=== PATIENT | male | born 1960 | race Caucasian/White ===

== ENCOUNTER → 2016-08-31 | Outpatient (CLI) | payer MEDICARE, OTHER ==
[~2016-08-31] MED LIST: ATEN25TA PO; CINA30TA PO; CIPR-250 PO; FLAG500T PO; FOLI1TAB4 PO; HEPARIN 1,000 UNITS/ML 10ML VIAL (FOR RADIOLOGY& DIALYSIS ONLY) As Ordered ONE; ISOVUE-300 61% 50ML VIAL (Q9967) As Ordered ONE; LACTCAP PO; LANT50TA PO; LORA1TAB12 PO; MIDAZOLAM INJ 2 MG/2 ML VIAL (J2250) As Ordered ONE; MINO2.5T PO; RENATAB5 PO; RENV2TAB PO; [UNRECOGNIZED DRUG - CODE] PO; fentaNYL 100 MCG/2 ML INJECTION (J3010) As Ordered ONE
--- NOTE | 2016-09-01 14:39 | RO ---
DATE OF PROCEDURE: 08/31/2016 PREPROCEDURE DIAGNOSES: Dysfunction left brachiocephalic arteriovenous fistula , left hand and forearm swelling. POSTPROCEDURE DIAGNOSES: Dysfunction left brachiocephalic arteriovenous fistula, left hand and forearm swelling. PROCEDURE: Left brachiocephalic arteriovenous fistulogram SURGEON: Dr. Glenn Quezada MD STRATEGIC PLANNING SPECIALIST: Yamileth Garner ANESTHESIA: Local with 1 mL of 2% lidocaine. FLUORO TIME: 0.8 minutes. CONTRAST: 6 mL. COMPLICATIONS: None. DRAINS: None. SPECIMENS: None. IMPLANTS: None. 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 The patient has experienced swelling in his left hand and forearm, making use of his arm difficult. The patient was evaluated and the recommendation was to undergo a fistulogram with possible angioplasty and/or stent. Risks, benefits and alternative treatment options were discussed with the patient. Alternative treatment options included , but were not limited to no intervention. Risks, included but were not limited to infection, bleeding, loss of arteriovenous access, possible need for open surgical revision, Steel syndrome, cerebrovascular accident, myocardial infarction, pulmonary embolus, deep vein thrombosis (DVT), loss of limb, loss of life and poor outcome. The patient understands and accepts these risks and consents to proceed. The patient was taken to the angiography suite and placed supine on the angiography table and the left upper extremity was prepped and draped in a standard surgical fashion. A time out was completed confirming the correct patient and procedure. After which, the cephalic vein at the antecubital fossa was cannulated with a micropuncture needle after anesthetizing the overlying skin with 2% lidocaine. A fistulogram was then performed through the micropuncture sheath, which was placed over the micropuncture wire. No intervention was required. The micropuncture sheath was removed and manual compression applied at the puncture site for hemostasis. Dressings were then applied. The patient tolerated the procedure well. All instruments, sponge and needle counts were correct at the end of the care. There were no complications. Dr. Quezada was present for and directed the entire case. The patient was transferred to the holding area and subsequently discharged in stable condition. RADIOLOGIC SUPERVISION INTERPRETATION: The fistulogram showed the cephalic vein to be widely patent and dilated with multiple areas of aneurysmal degeneration along its course. There were large collaterals originating off the cephalic vein at the antecubital fossa and coursing in the deeper venous system. The central venous system was patent with no stenosis of occlusion noted. CONCLUSION: The patient underwent a fistulogram showed no intervention required on the fistula. The patient does have large collaterals coursing off of the cephalic vein at the antecubital fossa and into the deeper venous system, which are most likely the cause of the swelling in the forearm and hand. MTDD
--- NOTE | 2016-09-02 13:16 | REP ---
IMAGES DURING LEFT UPPER EXTREMITY FISTULOGRAM: Multiple images are obtained of left upper extremity during fistulogram. Multiple vascular structures are seen of the left upper extremity. 0.8 minutes fluoroscopy time utilized for the procedure. Signed by Kehinde Johnson MD 09/02/2016 03:57 P
== END ==
LOC: M IRPRO 07:02
PROVIDERS: ATTEND Surgery Vascular Surgery
DX: T82.898A Other specified complication of vascular prosthetic devices, implants and grafts, initial encounter (principal); N18.6 End stage renal disease
CPT/HCPCS: 36901; C1769; C1894; Q9967

== ENCOUNTER 2017-03-01 15:01 | Day surgery (SDC) | payer MEDICARE, OTHER ==
[~2017-03-01 15:01] MED LIST changes: -ATEN25TA PO; -CINA30TA PO; -CIPR-250 PO; -FLAG500T PO; -FOLI1TAB4 PO; -HEPARIN 1,000 UNITS/ML 10ML VIAL (FOR RADIOLOGY& DIALYSIS ONLY) As Ordered ONE; -ISOVUE-300 61% 50ML VIAL (Q9967) As Ordered ONE; -LACTCAP PO; -LANT50TA PO; -LORA1TAB12 PO; +LR 1,000 ML IV; -MIDAZOLAM INJ 2 MG/2 ML VIAL (J2250) As Ordered ONE; -MINO2.5T PO; -RENATAB5 PO; -RENV2TAB PO; -[UNRECOGNIZED DRUG - CODE] PO; -fentaNYL 100 MCG/2 ML INJECTION (J3010) As Ordered ONE
[2017-03-01 15:44] LABS: INR 2.29; PROTHROMBIN TIME 26.1 SECONDS (12.4-14.5)
[2017-03-01 15:48] LABS: POTASSIUM SERUM 4.5 MEQ/L (3.5-5.1)
[2017-03-01] MEDS ORDERED: LIDOCAINE 2% INJ 100 MG/5 ML SDV (FOR ANES.) As Ordered (16:07)
[2017-03-01] MEDS ORDERED: MIDAZOLAM INJ 2 MG/2 ML VIAL (J2250) As Ordered (16:07)
[2017-03-01] MEDS ORDERED: PROPOFOL 200 MG/20 ML VIAL As Ordered ×2 (16:07→17:05)
[2017-03-01] MEDS ORDERED: fentaNYL 100 MCG/2 ML INJECTION (J3010) As Ordered (16:08)
[2017-03-01] MEDS ORDERED: NS 1,000 ML IV (16:15)
[2017-03-01] MEDS: LIDOCAINE 1% MDV 20ML VIAL As Ordered (16:55)
[2017-03-01] MEDS: BUPIVACAINE HCL 0.5% 10 ML VIAL As Ordered (16:56)
[2017-03-01] MEDS: HEPARIN SOD (PORCINE) 5000 UNITS/ML VIAL As Ordered (17:05)
== END 2017-03-01 18:20 | disposition home or self-care (01) ==
LOC: M SDC 15:01
DX: T82.590A Other mechanical complication of surgically created arteriovenous fistula, initial encounter (principal); N18.6 End stage renal disease; M79.642 Pain in left hand; M25.442 Effusion, left hand; I48.91 Unspecified atrial fibrillation; I12.0 Hypertensive chronic kidney disease with stage 5 chronic kidney disease or end stage renal disease; D64.9 Anemia, unspecified; M51.9 Unspecified thoracic, thoracolumbar and lumbosacral intervertebral disc disorder; F41.9 Anxiety disorder, unspecified; Z79.899 Other long term (current) drug therapy; Z79.01 Long term (current) use of anticoagulants; Z87.820 Personal history of traumatic brain injury; Z94.0 Kidney transplant status; Z87.891 Personal history of nicotine dependence
CPT/HCPCS: 36832

== ENCOUNTER 2017-11-02 20:29 | Emergency (ER) | payer MEDICARE, OTHER ==
[2017-11-02 22:20] LABS: BASO # 0.1 10^3/uL (0.0-0.2); BASO % 1.5 % (0.0-1.0); EOS # 0.4 10^3/uL (0.0-0.50); HEMATOCRIT 37.7 % (42.0-52.0); HEMOGLOBIN 12.5 g/dl (13.5-17.5); LYMPH # 1.5 10^3/uL (1.5-4.5); LYMPH % 29.2 % (24.0-44.0); MEAN CORPUSCULAR HGB CONC 33.2 g/dl (32.0-36.5); MEAN CORPUSCULAR VOLUME 96.4 fl (80.0-96.0); MONO # 0.7 10^3/uL (0.0-0.8); MONO % 13.4 % (0.0-5.0); NEUTROPHILS # 2.5 10^3/uL (1.8-7.7); NEUTROPHILS % 47.9 % (36.0-66.0); PLATELET COUNT, AUTOMATED 226 10^3/uL (150-450); RED BLOOD COUNT 3.91 10^6/uL (4.30-6.10); RED CELL DISTRIBUTION WIDTH 15.3 % (11.5-14.5); WHITE BLOOD COUNT 5.3 10^3/uL (4.0-10.0)
[2017-11-02 22:34] LABS: INR 2.29; PROTHROMBIN TIME 25.7 SECONDS (12.1-14.4)
[2017-11-02 22:35] LABS: PARTIAL THROMBOPLASTIN TIME 43.4 SECONDS (25.4-37.6)
[2017-11-02 22:48] LABS: ALBUMIN 3.7 GM/DL (3.2-5.2); ALBUMIN/GLOBULIN RATIO 1.03 (1.00-1.93); ALKALINE PHOSPHATASE 92 U/L (45-117); ALT/SGPT 26 U/L (12-78); ANION GAP 9 MEQ/L (8-16); AST/SGOT 32 U/L (7-37); BILIRUBIN,DIRECT 0.2 MG/DL (0.0-0.2); BILIRUBIN,TOTAL 0.8 MG/DL (0.2-1.0); BLOOD UREA NITROGEN 12 MG/DL (7-18); CALCIUM LEVEL 9.1 MG/DL (8.5-10.1); CARBON DIOXIDE LEVEL 28 MEQ/L (21-32); CHLORIDE LEVEL 102 MEQ/L (98-107); CPK CREATINE PHOSPHOKINASE 189 U/L (39-308); CREATININE FOR GFR 4.27 MG/DL (0.70-1.30); FREE T4 1.35 NG/DL (0.76-1.46); GLOMERULAR FILTRATION RATE 15.4 (>56); GLUCOSE, FASTING 85 MG/DL (70-100); MB/CK RELATIVE INDEX 1.38 (< OR =4); POTASSIUM SERUM 3.8 MEQ/L (3.5-5.1); SODIUM LEVEL 139 MEQ/L (136-145); TOTAL PROTEIN 7.3 GM/DL (6.4-8.2); TROPONIN I 0.04 NG/ML (< 0.10)
== END 2017-11-03 00:47 | disposition home or self-care (01) ==
LOC: M ED 11-03 00:47
DX: I48.91 Unspecified atrial fibrillation (principal); I45.19 Other right bundle-branch block; N18.6 End stage renal disease; Z99.2 Dependence on renal dialysis; Z87.891 Personal history of nicotine dependence; Z79.899 Other long term (current) drug therapy; Z79.01 Long term (current) use of anticoagulants
CPT/HCPCS: 93005

== ENCOUNTER → 2017-12-08 | Outpatient (CLI) | payer MEDICARE, OTHER ==
[2017-12-08 11:31] LABS: BASO # 0.1 10^3/uL (0.0-0.2); BASO % 1.2 % (0.0-1.0); EOS # 0.3 10^3/uL (0.0-0.50); EOS % 5.3 % (0.0-3.0); HEMATOCRIT 38.4 % (42.0-52.0); HEMOGLOBIN 12.3 g/dl (13.5-17.5); IMMATURE GRANULOCYTE % 0.3 % (0-3.0); LYMPH # 1.1 10^3/uL (1.5-4.5); LYMPH % 18.8 % (24.0-44.0); MEAN CORPUSCULAR HEMOGLOBIN 31.4 pg (27.0-33.0); MONO # 0.8 10^3/uL (0.0-0.8); MONO % 14.2 % (0.0-5.0); NEUTROPHILS # 3.6 10^3/uL (1.8-7.7); NEUTROPHILS % 60.2 % (36.0-66.0); PLATELET COUNT, AUTOMATED 243 10^3/uL (150-450); RED BLOOD COUNT 3.92 10^6/uL (4.30-6.10); RED CELL DISTRIBUTION WIDTH 16.9 % (11.5-14.5); WHITE BLOOD COUNT 5.9 10^3/uL (4.0-10.0)
[2017-12-08 12:09] LABS: ALBUMIN 3.8 GM/DL (3.2-5.2); ALBUMIN/GLOBULIN RATIO 1.15 (1.00-1.93); ALKALINE PHOSPHATASE 97 U/L (45-117); ALT/SGPT 23 U/L (12-78); ANION GAP 8 MEQ/L (8-16); AST/SGOT 31 U/L (7-37); BILIRUBIN,TOTAL 1.4 MG/DL (0.2-1.0); BLOOD UREA NITROGEN 21 MG/DL (7-18); CALCIUM LEVEL 8.9 MG/DL (8.5-10.1); CARBON DIOXIDE LEVEL 32 MEQ/L (21-32); CHLORIDE LEVEL 101 MEQ/L (98-107); GLOMERULAR FILTRATION RATE 11.2 (>56); GLUCOSE, FASTING 68 MG/DL (70-100); POTASSIUM SERUM 4.6 MEQ/L (3.5-5.1); SODIUM LEVEL 141 MEQ/L (136-145); THYROID STIMULATING HORMONE 0.649 uIU/ML (0.358-3.740); TOTAL PROTEIN 7.1 GM/DL (6.4-8.2)
[2017-12-09 10:52] LABS: HEPATITIS B SURFACE ANTIBODY POSITIVE (POSITIVE)
[2017-12-09 11:01] LABS: HEPATITIS B SURFACE ANTIGEN NEGATIVE (NEGATIVE)
[2017-12-09 11:30] LABS: HEPATITIS C VIRUS ABY INDEX < 0.0 INDEX (<0.8); HIV 1&2 SCREEN CENTAUR NEGATIVE (NEGATIVE)
[2017-12-09 14:19] LABS: HEPATITIS A ANTIBODY IGM NEGATIVE (NEGATIVE)
[2017-12-10 16:17] LABS: CYTOMEGALOVIRUS IgG ANTIBODY <0.60 U/mL (0.00-0.59); CYTOMEGALOVIRUS IgM ANTIBODY <30.0 AU/mL (0.0-29.9); EBV AB TO NUCLEAR ANTIGEN >600.0 U/mL (0.0-17.9)
[2017-12-10 16:17] LABS: EBV VIRAL CAPSID AG IgM <36.0 U/mL (0.0-35.9)
== END ==
LOC: M LAB 10:20
DX: Z01.818 Encounter for other preprocedural examination (principal); N18.6 End stage renal disease; Z12.5 Encounter for screening for malignant neoplasm of prostate
CPT/HCPCS: 71046

== ENCOUNTER → 2017-12-27 | Outpatient (CLI) | payer MEDICARE, OTHER ==
[2017-12-27 15:23] LABS: BASO # 0.1 10^3/uL (0.0-0.2); BASO % 1.3 % (0.0-1.0); EOS # 0.2 10^3/uL (0.0-0.50); EOS % 3.5 % (0.0-3.0); HEMATOCRIT 29.8 % (42.0-52.0); HEMOGLOBIN 9.8 g/dl (13.5-17.5); IMMATURE GRANULOCYTE % 0.4 % (0-3.0); LYMPH # 0.7 10^3/uL (1.5-4.5); LYMPH % 12.9 % (24.0-44.0); MEAN CORPUSCULAR HEMOGLOBIN 31.5 pg (27.0-33.0); MEAN CORPUSCULAR HGB CONC 32.9 g/dl (32.0-36.5); MEAN CORPUSCULAR VOLUME 95.8 fl (80.0-96.0); MONO # 1.1 10^3/uL (0.0-0.8); MONO % 19.8 % (0.0-5.0); NEUTROPHILS # 3.4 10^3/uL (1.8-7.7); NEUTROPHILS % 62.1 % (36.0-66.0); PLATELET COUNT, AUTOMATED 257 10^3/uL (150-450); RED BLOOD COUNT 3.11 10^6/uL (4.30-6.10); WHITE BLOOD COUNT 5.4 10^3/uL (4.0-10.0)
[2017-12-27 15:34] LABS: INR 1.82; PARTIAL THROMBOPLASTIN TIME 33.5 SECONDS (25.4-37.6); PROTHROMBIN TIME 21.4 SECONDS (12.1-14.4)
[2017-12-27 15:45] LABS: ALBUMIN 3.6 GM/DL (3.2-5.2); ALKALINE PHOSPHATASE 86 U/L (45-117); ALT/SGPT 27 U/L (12-78); ANION GAP 9 MEQ/L (8-16); AST/SGOT 26 U/L (7-37); BILIRUBIN,TOTAL 0.9 MG/DL (0.2-1.0); BLOOD UREA NITROGEN 37 MG/DL (7-18); CALCIUM LEVEL 9.7 MG/DL (8.5-10.1); CARBON DIOXIDE LEVEL 29 MEQ/L (21-32); CHLORIDE LEVEL 100 MEQ/L (98-107); CREATININE FOR GFR 6.35 MG/DL (0.70-1.30); GLOMERULAR FILTRATION RATE 9.7 (>56); GLUCOSE, FASTING 101 MG/DL (70-100); POTASSIUM SERUM 4.8 MEQ/L (3.5-5.1); SODIUM LEVEL 138 MEQ/L (136-145); TOTAL PROTEIN 6.6 GM/DL (6.4-8.2)
== END ==
LOC: M LAB 14:57
DX: Z01.818 Encounter for other preprocedural examination (principal); R53.83 Other fatigue; G56.01 Carpal tunnel syndrome, right upper limb
CPT/HCPCS: 80053

== ENCOUNTER → 2018-03-02 | Outpatient (CLI) | payer MEDICARE ==
[~2018-03-02] MED LIST changes: +ATEN25TA PO; +ATIV1TAB7 PO; +CARD120C3 PO; +CINA30TA PO; +CIPR-250 PO; +COUM7.5T PO; +FLAG500T PO; +FOLI1TAB11 PO; +FOSR500C2 PO; +HYDR-3911 PO; +LACTCAP PO; +LANT500C; +LORA1TAB12 PO; +LOSA100T50 PO; +LOSA25TA14; -LR 1,000 ML IV; +MINO2.5T PO; +RENATAB5 PO; +RENV2TAB PO; +SENS60TA; +WARF-23; +[UNRECOGNIZED DRUG - CODE] PO
[2018-03-02 14:10] LABS: BASO # 0.1 10^3/uL (0.0-0.2); BASO % 1.9 % (0.0-1.0); EOS # 0.4 10^3/uL (0.0-0.50); HEMATOCRIT 29.4 % (42.0-52.0); HEMOGLOBIN 9.7 g/dl (13.5-17.5); LYMPH # 1.6 10^3/uL (1.5-4.5); LYMPH % 31.1 % (24.0-44.0); MONO # 0.8 10^3/uL (0.0-0.8); MONO % 15.4 % (0.0-5.0); NEUTROPHILS # 2.2 10^3/uL (1.8-7.7); NEUTROPHILS % 43.4 % (36.0-66.0); PLATELET COUNT, AUTOMATED 279 10^3/uL (150-450); RED BLOOD COUNT 2.94 10^6/uL (4.30-6.10); WHITE BLOOD COUNT 5.1 10^3/uL (4.0-10.0)
[2018-03-02 14:36] LABS: ALBUMIN 3.7 GM/DL (3.2-5.2); BILIRUBIN,TOTAL 0.8 MG/DL (0.2-1.0); CALCIUM LEVEL 9.1 MG/DL (8.5-10.1); CREATININE FOR GFR 5.57 MG/DL (0.70-1.30); GLOMERULAR FILTRATION RATE 11.3 (>56); POTASSIUM SERUM 4.5 MEQ/L (3.5-5.1); TOTAL PROTEIN 6.5 GM/DL (6.4-8.2)
--- NOTE | 2018-03-03 21:46 | ECGEPIP ---
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
== END ==
LOC: M LAB 13:44
PROVIDERS: ATTEND Family Medicine
DX: R53.83 Other fatigue (principal); Z98.890 Other specified postprocedural states; I12.0 Hypertensive chronic kidney disease with stage 5 chronic kidney disease or end stage renal disease; N18.6 End stage renal disease

== ENCOUNTER → 2019-01-12 | Outpatient (REF) | payer MEDICARE ==
[~2019-01-12] MED LIST changes: -CINA30TA PO; +CINA30TA4 PO
== END ==
LOC: M LAB REF 13:13
PROVIDERS: ATTEND Internal Medicine Nephrology
DX: Z94.0 Kidney transplant status (principal)

== ENCOUNTER → 2019-03-15 | Outpatient (REF) | payer MEDICARE ==
[~2019-03-15] MED LIST changes: -LORA1TAB12 PO; +LORA1TAB4 PO
== END ==
LOC: M LAB REF 13:01
PROVIDERS: ATTEND Internal Medicine Nephrology
DX: Z94.0 Kidney transplant status (principal)

== ENCOUNTER → 2019-04-17 | Outpatient (CLI) | payer MEDICARE ==
[~2019-04-17] VITALS: Ht 170.2 cm; Wt 70.0 kg
[~2019-04-17] MED LIST changes: +ASPI81TA85 PO; +BACT400T PO; +BENA25CA4 PO; +CALC1CAP31 PO; +CARDCAP3 PO; +CELL250C PO; +ENVA1TAB4 PO; +FILGRASTIM 300 MCG/0.5 ML SYRINGE (J1442 PER 1MCG) SC ONE; +GLYCCAP PO; +ISOS30TA4 PO; +MAGN400T14 PO; +METO25TA4 PO; +PRED5PAK2 PO
[2019-04-17 16:14] VITALS: BP 112/72
[2019-04-17 17:05] VITALS: BP 100/75
== END ==
LOC: M INFU 16:04
PROVIDERS: ATTEND Internal Medicine
DX: D70.2 Other drug-induced agranulocytosis (principal); Z94.0 Kidney transplant status
CPT/HCPCS: 96372; J1442

== ENCOUNTER 2019-04-18 15:38 | Outpatient (CLI) | payer MEDICARE ==
[~2019-04-18] VITALS: Ht 170.2 cm; Wt 69.8 kg
[~2019-04-18 15:38] MED LIST changes: -FILGRASTIM 300 MCG/0.5 ML SYRINGE (J1442 PER 1MCG) SC ONE
[2019-04-18 15:40] VITALS: BP 100/65
[2019-04-18] MEDS ORDERED: FILGRASTIM 300 MCG/0.5 ML SYRINGE (J1442 PER 1MCG) SC ONE (16:00)
== END 2019-04-18 16:20 | disposition home or self-care (01) ==
LOC: M INFU 15:38
PROVIDERS: ATTEND Internal Medicine
DX: D70.2 Other drug-induced agranulocytosis (principal); Z94.0 Kidney transplant status
CPT/HCPCS: 96372; J1442

== ENCOUNTER → 2019-05-15 | Outpatient (REF) | payer MEDICARE ==
[2019-05-15 14:17] LABS: ALBUMIN 3.9 GM/DL (3.2-5.2); BILIRUBIN,DIRECT 0.1 MG/DL (0.0-0.2); BILIRUBIN,TOTAL 0.6 MG/DL (0.2-1.0); TOTAL PROTEIN 7.4 GM/DL (6.4-8.2)
== END ==
LOC: M LAB REF 13:12
PROVIDERS: ATTEND Nurse Practitioner Family
DX: Z94.0 Kidney transplant status (principal)

== ENCOUNTER → 2019-07-18 | Outpatient (REF) | payer MEDICARE ==
[2019-07-18 18:38] LABS: FREE T4 1.19 NG/DL (0.76-1.46); THYROID STIMULATING HORMONE 1.43 uIU/ML (0.358-3.740)
[2019-07-18 18:41] LABS: TOTAL T3 143.5 NG/DL (60.0-181.0)
[2019-07-21 09:07] LABS: TESTOSTERONE FREE (DIRECT) 5.6 pg/mL (7.2-24.0)
== END ==
LOC: M LAB REF 16:40
PROVIDERS: ATTEND Nurse Practitioner Family
DX: Z94.0 Kidney transplant status (principal); R68.82 Decreased libido; R53.83 Other fatigue

== ENCOUNTER → 2019-07-20 | Outpatient (REF) | payer MEDICARE ==
[~2019-07-20] MED LIST changes: -COUM7.5T PO; +COUM7.5T6 PO
[2019-07-20 20:41] LABS: MAGNESIUM, URINE 10.9 MG/DL; URINE MAGNESIUM 24HR 173.3 MG/24HR (24-255)
== END ==
LOC: M LAB REF 16:47
PROVIDERS: ATTEND Nurse Practitioner Family
DX: E83.42 Hypomagnesemia (principal); Z94.0 Kidney transplant status

== ENCOUNTER 2019-08-09 21:22 | Emergency (ER) | payer MEDICARE ==
[~2019-08-09] VITALS: Ht 172.7 cm; Wt 71.0 kg
[~2019-08-09 21:22] MED LIST changes: -ASPI81TA85 PO; +ASPI81TA86 PO
[2019-08-09 21:23] VITALS: BP 142/84
[2019-08-09] MEDS ORDERED: KPHOS50TA PO (21:37)
[2019-08-09] MEDS ORDERED: VALA500T5 PO (21:37)
--- NOTE | 2019-08-09 22:21 | REPVR ---
PROCEDURE INFORMATION: Exam: CT Head Without Contrast Exam date and time: 08/09/2019 10:06 PM Age: 58 years old Clinical indication: Altered mental status/memory loss; Confusion or disorientation; Additional info: AMS TECHNIQUE: Imaging protocol: Computed tomography of the head without contrast. Radiation optimization: All CT scans at this facility use at least one of these dose optimization techniques: automated exposure control; mA and/or kV adjustment per patient size (includes targeted exams where dose is matched to clinical indication); or iterative reconstruction. COMPARISON: No relevant prior studies available. FINDINGS: Brain: No midline shift, mass, fluid collection, or evidence of acute hemorrhage. Couple small punctate cerebral calcifications. Mild cerebral volume loss. Mild patchy low attenuation in the white matter. Ventricles: Normal. No ventriculomegaly. Bones/joints: Unremarkable. No acute fracture. Sinuses: Visualized sinuses are unremarkable. No fluid levels. Mastoid air cells: Visualized mastoid air cells are well aerated. Soft tissues: Unremarkable. IMPRESSION: No acute intracranial abnormality. Electronically signed by: Lam Reyes On 08/09/2019 22:20:47 PM
[2019-08-09 22:32] LABS: BASO # 0.1 10^3/uL (0.0-0.2); BASO % 1.3 % (0.0-1.0); EOS # 0.1 10^3/uL (0.0-0.5); EOS % 1.7 % (0.0-3.0); HEMATOCRIT 44.7 % (42.0-52.0); HEMOGLOBIN 15.1 g/dl (13.5-17.5); LYMPH # 0.8 10^3/uL (1.5-5.0); LYMPH % 17.2 % (24.0-44.0); MEAN CORPUSCULAR HEMOGLOBIN 35.1 pg (27.0-33.0); MEAN CORPUSCULAR HGB CONC 33.8 g/dl (32.0-36.5); MONO # 0.5 10^3/uL (0.0-0.8); MONO % 10.3 % (0.0-5.0); NEUTROPHILS # 3.3 10^3/uL (1.5-8.5); NEUTROPHILS % 69.3 % (36.0-66.0); PLATELET COUNT, AUTOMATED 236 10^3/uL (150-450); WHITE BLOOD COUNT 4.8 10^3/uL (4.0-10.0)
[2019-08-09 23:08] LABS: ALBUMIN 3.9 GM/DL (3.2-5.2); ALT/SGPT 61 U/L (12-78); BILIRUBIN,DIRECT 0.3 MG/DL (0.0-0.2); BLOOD UREA NITROGEN 15 MG/DL (7-18); CALCIUM LEVEL 8.4 MG/DL (8.5-10.1); CARBON DIOXIDE LEVEL 25 MEQ/L (21-32); CHLORIDE LEVEL 107 MEQ/L (98-107); CREATININE FOR GFR 1.03 MG/DL (0.70-1.30); ETHYL ALCOHOL (ETHANOL) 0.006 % (0.000-0.010); FREE THYROXINE INDEX 3.5 % (1.4-3.8); GLOMERULAR FILTRATION RATE > 60.0 (>56); GLUCOSE, FASTING 91 MG/DL (70-100); POTASSIUM SERUM 4.1 MEQ/L (3.5-5.1); SODIUM LEVEL 140 MEQ/L (136-145); T UPTAKE 35 % (33-40); THYROXINE (T4) 9.9 UG/DL (4.5-12.0); TOTAL PROTEIN 7.2 GM/DL (6.4-8.2)
[2019-08-09] MEDS ORDERED: NS 1,000 ML IV ONE (23:15)
== END 2019-08-10 01:28 | disposition home or self-care (01) ==
LOC: M ED 21:22
DX: E86.0 Dehydration (principal); I48.91 Unspecified atrial fibrillation; I10 Essential (primary) hypertension; Z94.0 Kidney transplant status; Z87.891 Personal history of nicotine dependence; Z79.82 Long term (current) use of aspirin; Z79.899 Other long term (current) drug therapy
CPT/HCPCS: 70450; 80048; 80076; 82140; 84436; 84443; 84479; 85025; 96360; 99284; G0480

== ENCOUNTER → 2019-10-19 | Outpatient (REF) | payer MEDICARE ==
[~2019-10-19] MED LIST changes: +KPHOS50TA PO; +VALA500T5 PO
== END ==
LOC: M LAB REF 16:56
PROVIDERS: ATTEND Nurse Practitioner Family
DX: Z94.0 Kidney transplant status (principal)

== ENCOUNTER → 2020-01-23 | Outpatient (REF) | payer MEDICARE | LOC: M LAB REF 16:57 | PROVIDERS: ATTEND Nurse Practitioner Family | DX: Z94.0 Kidney transplant status (principal) ==

== ENCOUNTER → 2020-01-25 | Outpatient (CLI) | payer MEDICARE ==
--- NOTE | 2020-01-25 12:10 | REP ---
INDICATION: KIDNEY TRANSPLANT STATUS. Acute kidney failure. COMPARISON: None. TECHNIQUE: Transabdominal two-dimensional scanning and Doppler assessment transplant kidney. FINDINGS: The left lower quadrant renal transplant measures 12.8 x 5.6 x 5.5 cm in overall dimension. There is no evidence of hydronephrosis mass or cyst. No calculus is seen.. Arterial velocity chart: Pre anastomotic iliac artery PSV 71 cm/S Post anastomotic iliac artery PSV 84 cm/S Main renal artery at an estimate 0 CIS 164 cm/S Main renal artery mid 91 cm/S Main renal artery at hilum 59 cm/S Main renal artery to external iliac artery velocity ratio normal 2.3 Main renal vein patent. Resistive indices and acceleration times are measured in the intralobar arteries of the upper mid and lower 3rd of the transplant kidney. These values are essentially normal, resistive indices 0.58-0.69.. IMPRESSION: No morphologic abnormality noted. Arterial Doppler velocities essentially normal. No baseline for comparison. No Doppler abnormality noted.. <Electronically signed by Wolfgang Cuadra > 01/25/20 [id number]
== END ==
LOC: M RAD 10:30
PROVIDERS: ATTEND Nurse Practitioner Family
DX: Z94.0 Kidney transplant status (principal); N17.9 Acute kidney failure, unspecified

== ENCOUNTER → 2020-01-30 | Outpatient (REF) | payer MEDICARE ==
[2020-01-30 18:03] LABS: INR 0.97; PROTHROMBIN TIME 13.1 SECONDS (12.5-14.3)
== END ==
LOC: M LAB REF 17:22
PROVIDERS: ATTEND Nurse Practitioner Family
DX: Z94.0 Kidney transplant status (principal); Z01.812 Encounter for preprocedural laboratory examination

== ENCOUNTER → 2020-02-06 | Outpatient (REF) | payer MEDICARE ==
[2020-02-06 17:49] LABS: INR 0.92; PROTHROMBIN TIME 12.6 SECONDS (12.5-14.3)
[2020-02-06 17:50] LABS: PARTIAL THROMBOPLASTIN TIME 32.5 SECONDS (24.2-38.5)
== END ==
LOC: M LAB REF 16:47
PROVIDERS: ATTEND Nurse Practitioner Family
DX: Z94.0 Kidney transplant status (principal); Z01.812 Encounter for preprocedural laboratory examination

== ENCOUNTER → 2020-03-04 | Outpatient (REF) | payer MEDICARE | LOC: M LAB REF 17:13 | PROVIDERS: ATTEND Nurse Practitioner Family | DX: Z94.0 Kidney transplant status (principal) ==

== ENCOUNTER → 2020-05-02 | Outpatient (REF) | payer MEDICARE ==
[~2020-05-02] MED LIST changes: +ISOS1TAB35 PO; -ISOS30TA4 PO
== END ==
LOC: M LAB REF 16:58
PROVIDERS: ATTEND Nurse Practitioner Family
DX: Z94.0 Kidney transplant status (principal)

== ENCOUNTER → 2020-12-19 | Outpatient (REF) | payer MEDICARE | LOC: M LAB REF 13:37 | PROVIDERS: ATTEND Nurse Practitioner Family | DX: Z94.0 Kidney transplant status (principal) ==

== ENCOUNTER → 2021-04-22 | Outpatient (REF) | payer MEDICARE ==
[~2021-04-22] MED LIST changes: +LOSA100T45 PO; -LOSA100T50 PO; +LOSA25TA13; -LOSA25TA14
== END ==
LOC: M LAB REF 13:02
PROVIDERS: ATTEND Nurse Practitioner Family
DX: E83.42 Hypomagnesemia (principal); Z94.0 Kidney transplant status

== ENCOUNTER → 2021-07-24 | Outpatient (REF) | payer MEDICARE | LOC: M LAB REF 17:04 | PROVIDERS: ATTEND Nurse Practitioner Family | DX: Z94.0 Kidney transplant status (principal) ==

== ENCOUNTER → 2022-06-08 | Outpatient (REF) | payer MEDICARE ==
[2022-06-12 21:10] LABS: PSA TOTAL 0.7 ng/mL (0.0-4.0)
== END ==
LOC: M LAB REF 17:16
PROVIDERS: ATTEND Nurse Practitioner Family
DX: Z94.0 Kidney transplant status (principal); N40.1 Benign prostatic hyperplasia with lower urinary tract symptoms

== ENCOUNTER → 2022-09-15 | Outpatient (REF) | payer MEDICARE ==
[~2022-09-15] MED LIST changes: +LORA1TAB23 PO; -LORA1TAB4 PO; -LOSA100T45 PO; +LOSA100T46 PO
== END ==
LOC: M LAB REF 17:21
PROVIDERS: ATTEND Nurse Practitioner Family
DX: Z94.0 Kidney transplant status (principal)

== ENCOUNTER → 2022-12-28 | Outpatient (CLI) | payer MEDICARE | LOC: M RAD 13:53 | PROVIDERS: ATTEND Nurse Practitioner Family | DX: R39.14 Feeling of incomplete bladder emptying (principal) ==

== ENCOUNTER → 2023-03-31 | Outpatient (REF) | payer MEDICARE ==
[~2023-03-31] MED LIST changes: -HYDR-3911 PO; +HYDR50TA46 PO
[2023-03-31 18:27] LABS: FREE T4 1.08 NG/DL (0.89-1.76); THYROID STIMULATING HORMONE 0.861 uIU/ML (0.55-4.78)
== END ==
LOC: M LAB REF 17:35
PROVIDERS: ATTEND Nurse Practitioner Family
DX: R53.83 Other fatigue (principal)

== ENCOUNTER → 2023-04-01 | Outpatient (REF) | payer MEDICARE | LOC: M LAB REF 17:43 | PROVIDERS: ATTEND Nurse Practitioner Family | DX: Z94.0 Kidney transplant status (principal) ==

== ENCOUNTER → 2023-07-12 | Outpatient (REF) | payer MEDICARE | LOC: M LAB REF 17:22 | PROVIDERS: ATTEND Nurse Practitioner Family | DX: Z94.0 Kidney transplant status (principal) ==